=== PATIENT | female | born 1995 | race Caucasian/White ===

== ENCOUNTER 2017-09-02 14:02 | Emergency (ER) | payer BC ==
[~2017-09-02] VITALS: Ht 157.5 cm; Wt 68.1 kg
[~2017-09-02 14:02] MED LIST: NOHOMEMEDS
[2017-09-02 14:24] LABS: APPEARANCE CLOUDY ((CLEAR)); BILIRUBIN NEGATIVE; BLOOD NEGATIVE; COLOR YELLOW ((YELLOW)); GLUCOSE (STRIP) NEGATIVE; KETONES NEGATIVE; LEUKOCYTES MODERATE; NITRITE NEGATIVE; PROTEIN (STRIP) 30; SPECIFIC GRAVITY 1.028 (1.000-1.030); UROBILINOGEN 0.2 MG/DL (0.2-1.0)
[2017-09-02 14:35] LABS: BACTERIA RARE /HPF; CALCIUM OXALATE CRYSTALS 1+ /HPF; EPITHELIAL CELLS 4+ /HPF; HYALINE CASTS 0-5 /LPF; MUCUS 2+ /LPF; RED BLOOD CELLS 0-5 /HPF (0-5); UCUL ADDED? YES; URIC ACID CRYSTALS 1+ /HPF
[2017-09-02 14:37] LABS: HEMATOCRIT 33.1 % (36.0-46.0); HEMOGLOBIN 11.5 G/DL (11.9-15.5); MCH 31.1 PG (29.0-34.0); MCHC 34.7 G/DL (30.0-36.0); MCV 89.5 FL (83-99); PLATELET COUNT 209 K/uL (156-360); RBC DIS.WIDTH-CV 12.4 % (11.8-14.6); RBC DIS.WIDTH-SD 40.5 % (39-53); WHITE BLOOD COUNT 10.9 K/uL (4.1-10.2)
[2017-09-02 14:40] LABS: CHLORIDE 105 mEq/L (99-109); POTASSIUM 3.9 mEq/L (3.7-5.4); SODIUM 138 mEq/L (136-147)
[2017-09-02 14:41] LABS: GLUCOSE 90 mg/dL (70-99)
[2017-09-02 14:45] LABS: CREATININE 0.6 mg/dL (0.6-1.3); GFR ESTIMATE (CALCULATED) > 59 mL/min/
[2017-09-02 14:46] LABS: UREA NITROGEN (BUN) 11 mg/dL (9-23)
[2017-09-02 15:22] LABS: QUANTITATIVE HCG 34841.1 MIU/ML
[2017-09-02 15:37] LABS: ALBUMIN 3.8 g/dL (3.2-4.8)
[2017-09-02 15:40] LABS: TOTAL PROTEIN 7.1 g/dL (6.4-8.3)
[2017-09-02 15:41] LABS: TOTAL BILIRUBIN 0.2 mg/dL (0.0-1.0)
[2017-09-02 15:43] LABS: ALKALINE PHOSPHATASE 106 IU/L (3-129)
[2017-09-02 15:45] LABS: AST (GOT) 20 IU/L (2-34); DIRECT BILIRUBIN 0.1 mg/dL (0.0-0.3)
[2017-09-02 15:46] LABS: ALT (GPT) 29 IU/L (3-49)
[2017-09-02 17:55] VITALS: BP 119/64
== END 2017-09-02 17:56 | disposition home or self-care (01) ==
LOC: EME 14:02
DX: O26.892 Other specified pregnancy related conditions, second trimester (principal); R10.11 Right upper quadrant pain; R11.0 Nausea; R06.02 Shortness of breath; O99.012 Anemia complicating pregnancy, second trimester; D64.9 Anemia, unspecified; O99.112 Other diseases of the blood and blood-forming organs and certain disorders involving the immune mechanism complicating pregnancy, second trimester; D72.829 Elevated white blood cell count, unspecified; Z3A.16 16 weeks gestation of pregnancy
CPT/HCPCS: 76770; 80048; 80076; 81003; 84702; 85027; 87086; 99281; 99284

== ENCOUNTER 2018-01-07 14:17 | Inpatient (IN) | payer BC ==
[2018-01-07] VITALS (28 sets, daily range): BP systolic 134–207; BP diastolic 77–113
[~2018-01-07] VITALS: Ht 160 cm; Wt 77.2 kg
[2018-01-07 15:13] LABS: BASOPHIL (%) 0.3 % (0-1); EOSINOPHIL (%) 0.8 % (0-5); EOSINOPHIL COUNT 0.1 K/uL (0-0.3); HEMATOCRIT 34.4 % (36.0-46.0); HEMOGLOBIN 11.5 G/DL (11.9-15.5); IMMATURE GRANULOCYTE (%) 0.4 % (0.0-0.7); LYMPHOCYTE (%) 23.7 % (15-42); LYMPHOCYTE COUNT 2.5 K/uL (1.0-2.8); MCH 29.7 PG (29.0-34.0); MCHC 33.4 G/DL (30.0-36.0); MCV 88.9 FL (83-99); MONOCYTE (%) 6.3 % (3-12); MONOCYTE COUNT 0.7 K/uL (0-0.8); NEUTROPHIL (%) 68.5 % (45-76); NEUTROPHIL COUNT 7.1 K/uL (1.8-6.4); PLATELET COUNT 180 K/uL (156-360); RBC DIS.WIDTH-CV 13.8 % (11.8-14.6); RBC DIS.WIDTH-SD 44.9 % (39-53); RED BLOOD COUNT 3.87 M/uL (3.80-5.20); WHITE BLOOD COUNT 10.3 K/uL (4.1-10.2)
[2018-01-07 15:40] LABS: ALBUMIN 3.2 G/DL (3.2-4.8); ALKALINE PHOSPHATASE 131 IU/L (3-129); ALT (GPT) 9 IU/L (3-49); AST (GOT) 14 IU/L (2-34); CHLORIDE 106 MEQ/L (99-109); CREATININE 0.7 MG/DL (0.6-1.3); GFR ESTIMATE (CALCULATED) > 59 mL/min/; GLUCOSE 82 mg/dL (70-99); LACTATE DEHYDROGENASE 178 IU/L (20-246); POTASSIUM 4.3 MEQ/L (3.7-5.4); SODIUM 137 MEQ/L (136-147); TOTAL BILIRUBIN 0.2 MG/DL (0.0-1.0); TOTAL PROTEIN 6.4 G/DL (6.4-8.3); UREA NITROGEN (BUN) 13 mg/dL (9-23)
[2018-01-07 20:24] LABS: AMPHETAMINE NEGATIVE (500 ng/mL); BARBITURATES NEGATIVE (200 ng/mL); BENZODIAZEPINES NEGATIVE (150 ng/mL); COCAINE NEGATIVE (150 ng/mL); METHADONE NEGATIVE (200 ng/mL); METHAMPHETAMINE NEGATIVE (500 ng/mL); OPIATES (MORPHINE) NEGATIVE (100 ng/mL); OXYCODONE NEGATIVE (100 ng/mL); PHENCYCLIDINE NEGATIVE (25 ng/mL); PROPOXYPHENE NEGATIVE (300 ng/mL); THC CANNABINOIDS NEGATIVE (50 ng/mL); TRICYCLIC ANTIDEPRESSANTS NEGATIVE (300 ng/mL)
[2018-01-07 20:25] LABS: BUPRENORPHINE NEGATIVE (10 ng/mL)
[2018-01-07 21:01] LABS: UR CREATININE CONCENTRATION 201.3 MG/DL
[2018-01-07] MEDS ORDERED: VITAMIN D31000 UNIT PO (22:56)
[2018-01-07] MEDS ORDERED: PRENATAL TABLE1 EAC3 PO (22:56)
[2018-01-08] VITALS (23 sets, daily range): BP systolic 102–160; BP diastolic 55–102
[2018-01-08 06:58] LABS: BICARBONATE 23.5 mEq/L (22-26); CARBOXY HGB 0 % (0-5); COMMENTS - BLOOD GASES POSSIBLE VENOUSE; METHEMOGLOBIN 1.5 % (0-1.5); PCO2 50 mm Hg (35-45); PO2 < 30 mm Hg (80-100); SITE CORD GASS
[2018-01-08 06:59] LABS: pH 7.28 (7.35-7.45)
[2018-01-08 07:04] LABS: COMMENTS - BLOOD GASES ARTERY; PCO2 49 mm Hg (35-45); PO2 < 30 mm Hg (80-100); SITE CORD GAS
[2018-01-08 07:05] LABS: BASE EXCESS -3.6 mEq/L (-3 to +3); BICARBONATE 23.6 mEq/L (22-26); CARBOXY HGB 0 % (0-5); METHEMOGLOBIN 1.7 % (0-1.5)
[2018-01-08 07:06] LABS: pH 7.29 (7.35-7.45)
[2018-01-09] VITALS (13 sets, daily range): BP systolic 116–162; BP diastolic 68–96
[2018-01-09 06:50] LABS: BASOPHIL (%) 0.1 % (0-1); EOSINOPHIL (%) 0 % (0-5); HEMATOCRIT 28.5 % (36.0-46.0); IMMATURE GRANULOCYTE (%) 0.8 % (0.0-0.7); LYMPHOCYTE (%) 13.3 % (15-42); LYMPHOCYTE COUNT 2.1 K/uL (1.0-2.8); MCH 29.5 PG (29.0-34.0); MCHC 32.3 G/DL (30.0-36.0); MCV 91.3 FL (83-99); MONOCYTE (%) 6.3 % (3-12); NEUTROPHIL (%) 79.5 % (45-76); NEUTROPHIL COUNT 12.4 K/uL (1.8-6.4); PLATELET COUNT 183 K/uL (156-360); RBC DIS.WIDTH-CV 14.5 % (11.8-14.6); RBC DIS.WIDTH-SD 47.9 % (39-53); RED BLOOD COUNT 3.12 M/uL (3.80-5.20); WHITE BLOOD COUNT 15.6 K/uL (4.1-10.2)
[2018-01-09 06:51] LABS: HEMOGLOBIN 9.2 G/DL (11.9-15.5)
[2018-01-10] VITALS (12 sets, daily range): BP systolic 130–184; BP diastolic 69–104
[2018-01-11] VITALS (8 sets, daily range): BP systolic 115–185; BP diastolic 70–109
[2018-01-12 00:22] VITALS: BP 131/78
[2018-01-12 04:13] VITALS: BP 127/79
[2018-01-12 07:32] VITALS: BP 164/89
[2018-01-12] MEDS ORDERED: DOCUSATE SODIU100 MG PO (09:01)
[2018-01-12] MEDS ORDERED: BREAST PUMP MC (09:01)
[2018-01-12] MEDS ORDERED: IBUPROFEN800 MG PO (09:01)
[2018-01-12] MEDS ORDERED: ENDOCET 5-3251 EACH PO (09:01)
[2018-01-12] MEDS ORDERED: PROCARDIA XL30 MG PO (09:01)
[2018-01-12 10:29] VITALS: BP 119/67
[2018-01-12 14:46] VITALS: BP 132/79
== END 2018-01-12 17:34 | disposition home or self-care (01) | DRG 765 ==
LOC: LDRP-OP 14:17 → 2WEST 14:18 → LDRP-OP 03-15 16:20
PROVIDERS: Advanced Practice Midwife; Obstetrics & Gynecology
PROC: 3E0P7VZ Introduction of Hormone into Female Reproductive, Via Natural or Artificial Opening (ICD-10-PCS; 2018-01-07)
PROC: 10907ZC Drainage of Amniotic Fluid, Therapeutic from Products of Conception, Via Natural or Artificial Opening (ICD-10-PCS; 2018-01-07)
PROC: 10D00Z1 Extraction of Products of Conception, Low, Open Approach (ICD-10-PCS; principal; 2018-01-08)
DX: O14.14 Severe pre-eclampsia complicating childbirth (principal); D62 Acute posthemorrhagic anemia; E66.9 Obesity, unspecified; O99.02 Anemia complicating childbirth; O99.214 Obesity complicating childbirth; O99.284 Endocrine, nutritional and metabolic diseases complicating childbirth; E55.9 Vitamin D deficiency, unspecified; Z37.0 Single live birth; O15.1 Eclampsia complicating labor; O12.04 Gestational edema, complicating childbirth; O36.5931 Maternal care for other known or suspected poor fetal growth, third trimester, fetus 1; O60.14X1 Preterm labor third trimester with preterm delivery third trimester, fetus 1; O77.8 Labor and delivery complicated by other evidence of fetal stress; Z3A.34 34 weeks gestation of pregnancy; Z68.30 Body mass index [BMI] 30.0-30.9, adult
CPT/HCPCS: 36600; 76805; 76818; 80053; 82570; 82803; 83615; 83735; 84156; 85025; 87081; 88307; G0378; J0330; J0690; J0702; J1100; J1170; J2210; J2405; J2795; J3010; J3475; J7120; S0020